=== PATIENT | male | born 1985 | race African-American/Black ===

== ENCOUNTER 2024-12-19 09:19 | Emergency (ER) | payer OTHER ==
[~2024-12-19] VITALS: Ht 182.9 cm; Wt 124.2 kg
[2024-12-19] MEDS ORDERED: BENZ200C70 PO (11:55)
[2024-12-19] MEDS ORDERED: ONDA-282 PO (11:55)
[2024-12-19 12:05] VITALS: BP 138/80; TEMP 97.1; O2SAT 100
== END 2024-12-19 12:08 | disposition home or self-care (01) ==
LOC: M ED 09:19
DX: B34.8 Other viral infections of unspecified site (principal); Z88.0 Allergy status to penicillin; Z88.2 Allergy status to sulfonamides; Z79.83 Long term (current) use of bisphosphonates; Z79.899 Other long term (current) drug therapy